=== PATIENT | female | born 1955 | race Caucasian/White ===

== ENCOUNTER 2019-01-02 13:06 | Inpatient (IN) | payer MEDICARE ==
[~2019-01-02] VITALS: Ht 160 cm; Wt 135.3 kg
--- NOTE | ~2019-01-02 | HEMODYNAMI ---
PATIENT:HEATHER PALOMARES MEDICAL RECORD: [id number] : 57 LOCATION:[facility].2128 ADMISSION DATE: 01/02/19 Generatedon:01/05/201913:43 Patient name: HEATHER PALOMARES Patient #: [id number] SSN: DO B: 1955 Date of study: 01/05/2019 Page: Of Hemodynamic Procedure Report Patient Data Patient Demographics Procedure consent was obtained First Name: HEATHER Gender: Female Last Name: JELANI : 1955 Patient #: [id number] Age: 63 year(s) Race: Unknown Additional ID: [id number] Contact details [address]: [address] [place] [address] State: [place] City: [place] Zip code: [address] Admission Admission Data Admission Date: 01/02/2019 Admission Time: 15:04 Room #: D.2128 Procedure Procedure Types Cath Procedure Diagnostic Procedure Cardioversion External Procedure Description Procedure Date Procedure Date: 01/05/2019 Procedure Start Time: 13:30 Procedure End Time: 13:42 Procedure Staff Name Function Yefri Castro MD Performing Physician Danitza Gaitan RT Shrinking Machine Operator Kellie Toussaint RT Monitor Sharon Damian RN Nurse John Fuller Jr [facility] Additional personnel Procedure Data Procedure Complications No complications Procedure Medications Medication Administration Route Dosage 0.9% NaCl I.V. 100 ml/hr Oxygen etCO2 Nasal cannula 2 l/min Refer to Anesthesia Notes for Sedation Medications Digoxin I.V. 0.25 mg Hemodynamics Rest Heart Rate: 87 (bpm) Snapshots Pre Cath Intra NCS Post Cath Vital Signs Time Heart Resp SPO2 etCO2 NIBP (mmHg) Rhythm Pain Sedation Rate (ipm) (%) (mmHg) Status Level (bpm) 13:21:11 83 14 97 35.2 Measuring A-Fib 0 (11) 10(A) , No pain 13:21:13 80 12 97 35.2 186/88(134) A-Fib 0 (11) 10(A) , No pain 13:26:08 81 16 97 34.4 167/92(133) A-Fib 0 (11) 10(A) , No pain 13:31:07 78 19 97 32.9 Measuring A-Fib 0 (11) 10(A) , No pain 13:31:09 79 19 97 32.9 180/76(132) A-Fib 0 (11) 10(A) , No pain 13:36:08 51 17 96 23.9 Measuring A-Fib 0 (11) 5(A) , No pain 13:38:56 61 18 97 23.9 129/70(95) NSR 0 (11) 5(A) , No pain 13:41:54 60 18 98 28.4 127/74(95) NSR 0 (11) 10(A) , No pain Medications Time Medication Route Dose Verified Delivered Reason Notes Effective ness by by 13:21:41 0.9% NaCl I.V. 100 Yefri Sharon used for ml/hr [place] Rickie procedure RN 13:21:48 Oxygen etCO2 2 Yefri Sharon used for Nasal l/min [facility] procedure cannula RN 13:21:53 Refer to Yefri Asif Anesthesia [facility] Notes for MD [place] Sedation Medications 13:42:22 Digoxin I.V. 0.25 Yefri Daya Per mg [facility] physician accounting representative Log Time Note 13:00:42 Danitza Gaitan RT(R) sent for patient. Start room use. 13:18:51 Time tracking: Regular hours (M-F 7:00 - 5:00) 13:18:55 Plan of Care:Hemodynamics will remain stable., Cardiac rhythm will remain stable., Comfort level will be maintained., Respiratory function will remain adequate., Patient/ family verbilizes understanding of procedure., Procedure tolerated without complication., Recovers from procedure without complications.. 13:19:13 Patient arrived from PCU to CCL 1. Patient remains on bed/stretcher for procedure. 13:19:15 Warm blankets applied, and josi hugger turned on for patient comfort. 13:19:15 Correct patient and procedure confirmed by team. 13:19:17 Signed procedure consent form obtained from patient. 13:19:18 ECG and BP/O2 sat monitors applied to patient. 13:19:23 Vital chart was started 13:19:28 Baseline sample Acquired. 13:19:33 Rhythm: atrial fibrillation 13:19:35 Full Disclosure recording started 13:19:55 H&P Date Dictated: 01/03/2019 Within 30 days and on chart., H&P Addendum completed by physician on day of procedure. (MUST COMPLETE FOR ALL OUTPATIENTS). 13:19:56 Pre-procedure instructions explained to patient. 13:19:56 Pre-op teaching completed and patient verbalized understanding. 13:19:59 Family in patients room. 13:20:00 Patient NPO since Midnight. 13:20:02 Is the patient allergic to Iodine/contrast media? No. 13:20:03 Is patient on blood thinner?Yes 13:20:06 ACC The patient was administered the following blood thiners within the last 24 hours: Coumadin 13:20:08 Patient diabetic? No. 13:20:11 Previous problem with sedation/anesthesia? No ? 13:20:12 Snore? Yes 13:20:14 Sleep apnea? No 13:20:15 Deviated septum? No 13:20:16 Opens mouth fully? Yes 13:20:17 Sticks out tongue? Yes 13:20:19 Airway obstruction? No ? 13:20:23 Dentures? Yes OUT 13:20:49 Patient pain scale 0/10 ?. 13:20:57 IV patent on arrival in right forearm with 0.9% NaCl at [facility]. 13:20:59 Lab results completed and on chart. 13:21:11 Quick Combo opened to sterile field. 13:21:20 Alarms reviewed by RSuma NSuma 13:21:24 John Fuller Jr SPLITTER TENDER present and monitoring patient for TIVA. 13:21:27 Quick combo pads placed on patients chest and back. 13:21:41 0.9% NaCl 100 ml/hr I.V. was administered by Sharon Damian RN; used for procedure; 13:21:48 Oxygen 2 l/min etCO2 Nasal cannula was administered by Sharon Damian RN; used for procedure; 13:21:53 Refer to Anesthesia Notes for Sedation Medications was administered by Yefri Castro MD; ; 13:30:35 Procedure started. 13:33:31 Defibrillator synced and charged to 200 Joules. 13:33:34 Shock delivered. 13:33:49 Patient cardioverted to sinus rhythm . 13:35:57 PT CONVERTED OUT OF SINUS RHYTHM 13:36:08 Defibrillator synced and charged to 200 Joules. 13:36:10 Shock delivered. 13:36:24 Patient cardioverted to sinus rhythm . 13:39:21 Procedure ended.(Physican Out) 13:41:49 Post-procedure physical assessment completed. ASA score P 3 - A patient with severe systemic disease as per Yefri Castro MD. 13:41:53 Post procedure rhythm: sinus rhythm 13:42:08 Procedure and supply charges have been captured, reviewed, submitted and are correct. 13:42:22 Digoxin 0.25 mg I.V. was administered by Sharon Damian RN; Per physician; 13:42:29 Procedure Complication : No complications 13:42:35 Vital chart was stopped 13:42:38 See physician's report for complete and final results. 13:42:44 Report given to [facility]. 13:42:48 Patient transfered to [facility] with Bed. 13:42:51 Procedure ended. 13:42:51 Full Disclosure recording stopped 13:42:55 End room use (Document Last) 13:42:55 End room use (Document Last) 13:42:55 End room use (Document Last) Device Usage Item Manufacture Quantity Catalog Hospital Part Current Minimal Lot# / Name Number Charge Number Stock Stock Miranda al# Code Cequint 1 [id number] Combo Signature Audit [place] [employer] Stage Time Signature Unsigned Intra-Procedure 01/05/2019 Kellie Toussaint 1:43:31 PM RT(R) Signatures Monitor : Kellie Toussaint Signature : RT Date : Time : [facility] [address] [place] [address]
[2019-01-02] MEDS ORDERED: CLARITIN 10 MG10 MG PO (13:19)
[2019-01-02] MEDS ORDERED: PLAQUENIL PO (13:22)
[2019-01-02] MEDS ORDERED: ACETAMINOPHEN500 M1 PO (13:22)
[2019-01-02] MEDS ORDERED: LOPRESSOR25 MG PO (13:22)
[2019-01-02] MEDS ORDERED: REQUIP3 MG PO (13:23)
[2019-01-02] MEDS ORDERED: COUMADIN6 MG PO (13:23)
[2019-01-02] MEDS ORDERED: LEXAPRO20 MG PO (13:23)
[2019-01-02] MEDS ORDERED: LIPITOR10 MG PO (13:23)
[2019-01-02] MEDS ORDERED: PROTONIX40 MG PO (13:23)
[2019-01-02] MEDS ORDERED: KLONOPIN1 MG PO (13:24)
--- NOTE | 2019-01-02 13:41 | NUR ---
RECEIVED NTG TABS X 3. PAIN DECREASED FROM 8/10 TO 5/10.
[2019-01-02 13:44] LABS: BASOPHILS 0.4 % (0-2); EOSINOPHILS 0.6 % (0-7); HEMATOCRIT 30.1 % (36.0-48.0); HEMOGLOBIN 9.6 g/dL (12-16); IMMATURE GRANULOCYTES 0.2 % (0-5); MCH 28.9 pg (26.0-34.0); MCHC 31.9 g/dL (31.0-37.0); MCV 90.7 fL (80.0-100.0); MEAN PLATELET VOLUME 10.2 fL (7.4-10.4); MONOCYTES 5.7 % (2-11); NEUTROPHILS 80.1 % (40-80); PLATELET COUNT 186 10x3/uL (130-400); RBC 3.32 10x6/uL (4.00-5.40); RDW 14.5 % (11.5-14.5); WBC 5.3 10x3/uL (4.8-10.8)
[2019-01-02 13:52] VITALS: BP 157/75
[2019-01-02 13:57] LABS: APTT 42.5 SECONDS (22.8-39.4); INR 2.85 (0.85-1.17); PROTIME 29.1 SECONDS (11.6-15.0)
[2019-01-02 13:58] LABS: ALBUMIN 3.7 g/dL (3.4-5.0); ALKALINE PHOSPHATASE 62 U/L (46-116); ALT (SGPT) 28 U/L (10-68); BILIRUBIN - TOTAL 0.86 mg/dL (0.2-1.3); CALC OSMOLALITY 277 mosm/kg (275-300); CALCIUM 9.4 mg/dL (8.5-10.1); CARBON DIOXIDE 29.2 mmol/L (21.0-32.0); CHLORIDE - SERUM 102 mmol/L (98-107); CREATININE - SERUM 0.8 mg/dL (0.6-1.3); GLUCOSE 114 mg/dL (74-106); POTASSIUM - SERUM 4.6 mmol/L (3.5-5.1); PROTEIN - SERUM 8.1 g/dL (6.4-8.2); SODIUM 139 mmol/L (136-145); UREA NITROGEN 10 mg/dL (7-18); eGFR NON AFRICAN AMERICAN 77 mL/min (90-120)
[2019-01-02 14:00] VITALS: BP 153/77
[2019-01-02 14:10] LABS: CKMB 0.7 U/L (0.0-3.6); CREATINE KINASE 108 UL (21-215); MAGNESIUM - SERUM 1.7 mg/dL (1.8-2.4); PRO BNP 3241 pg/mL (0-125); TROPONIN-I < 0.017 ng/mL (0.000-0.060)
--- NOTE | 2019-01-02 14:15 | NUR ---
NEW PATIENT ADMIT FROM ER VIA [facility]ED AND [facility]OS[facility] PERSONNEL. PATIENT IS AWAKE, ALERT AND ORIENTED X 4. PATIENT IS STABLE AND VSS. O2 PER NC AT 2L. TELEMETRY APPLIED. CONTROLLED AFIB 94BPM. PATIENT HISTORY AND ASSESMENT COMPLETED. MULTIPLE AREAS OF REDNESS AND SCAB SORES. PATIENT STATES SHE HAS LONG HX OF STAPH INFECTION. NOTIFIED DR HUTTON OF ADMISSION. DR HUTTON STATED THAT HE WAS OF NEW PATIENT AND NO NEW ORDERS RECEIVED.
--- NOTE | 2019-01-02 20:09 | NUR ---
EVENING ROUNDS COMPLETED. REPORT RECEIVED. PT SITTING UP IN BED WITH EYES OPEN, RR EVEN AND UNLABORED. BED IN LOW POSITION. NO S/S OF DISTRESS NOTED. INTRODUCED SELF TO PT. PT DENIES FURTHER NEEDS AT THIS TIME. CALL LIGHT IN REACH. WILL CTM.
[2019-01-02 21:28] LABS: CKMB 0.5 U/L (0.0-3.6); CREATINE KINASE 110 UL (21-215); TROPONIN-I < 0.017 ng/mL (0.000-0.060)
--- NOTE | 2019-01-02 21:37 | NUR ---
ORDERED ECG PERFORMED AND PLACED ON CHART. EVENING MEDICATIONS ADMINISTERED WITHOUT ISSUE. CALL LIGHT IN REACH. WILL CTM.
--- NOTE | 2019-01-02 22:26 | NUR ---
CALLED [facility] MOORE NURSE PRACTICIONER REGARDING PT ELEVATED BLOOD PRESSURE AND HEART RATE. [facility] ORDERED A RESTART OF PT PO LOPRESSOR 25 MG BID.
[2019-01-03] VITALS (7 sets, daily range): BP systolic 101–172; BP diastolic 41–78; BMI 52.7
[2019-01-03 02:56] LABS: CKMB 0.5 U/L (0.0-3.6); CREATINE KINASE 99 UL (21-215); TROPONIN-I < 0.017 ng/mL (0.000-0.060)
--- NOTE | 2019-01-03 05:27 | NUR ---
I have reviewed this patient and I concur with the Shift Assessment completed by the Licensed Practical Nurse today this shift.
--- NOTE | 2019-01-03 05:27 | NUR ---
ADMISSION ASSESSMENT COMPLETED. PT AWAKE/ALERT AND UP IN BEDSIDE CHAIR. AT BEDSIDE.
[2019-01-03 11:15] LABS: BASOPHILS 0.8 % (0-2); EOSINOPHILS 2.9 % (0-7); HEMATOCRIT 28.2 % (36.0-48.0); HEMOGLOBIN 8.9 g/dL (12-16); IMMATURE GRANULOCYTES 0.2 % (0-5); LYMPHOCYTES 22.1 % (15-50); MCH 28.3 pg (26.0-34.0); MCHC 31.6 g/dL (31.0-37.0); MCV 89.8 fL (80.0-100.0); MEAN PLATELET VOLUME 9.1 fL (7.4-10.4); MONOCYTES 14.9 % (2-11); NEUTROPHILS 59.1 % (40-80); PLATELET COUNT 189 10x3/uL (130-400); RBC 3.14 10x6/uL (4.00-5.40); RDW 14.6 % (11.5-14.5); WBC 6.3 10x3/uL (4.8-10.8)
[2019-01-03 11:40] LABS: ALBUMIN 3.4 g/dL (3.4-5.0); ALKALINE PHOSPHATASE 53 U/L (46-116); ALT (SGPT) 24 U/L (10-68); BILIRUBIN - TOTAL 1.01 mg/dL (0.2-1.3); CALC OSMOLALITY 279 mosm/kg (275-300); CALCIUM 8.5 mg/dL (8.5-10.1); CARBON DIOXIDE 29.6 mmol/L (21.0-32.0); CHLORIDE - SERUM 103 mmol/L (98-107); CREATININE - SERUM 0.8 mg/dL (0.6-1.3); GLUCOSE 97 mg/dL (74-106); PROTEIN - SERUM 7.2 g/dL (6.4-8.2); SODIUM 141 mmol/L (136-145); UREA NITROGEN 10 mg/dL (7-18); eGFR NON AFRICAN AMERICAN 77 mL/min (90-120)
[2019-01-03 11:41] LABS: POTASSIUM - SERUM 3.5 mmol/L (3.5-5.1)
[2019-01-03 16:14] LABS: ERYTHROCYTE SEDIMENTATION RATE 28 mm/hr (0-30)
--- NOTE | 2019-01-03 20:00 | NUR ---
EVENING ROUNDS COMPLETED. REPORT RECEIVED. PT SITTING UP IN BED WITH EYES OPEN, RR EVEN AND UNLABORED. PT APPEARS TO HAVE SPILLED DRINK ON GOWN, ASSISTED PT IN CHANGING INTO NEW GOWN AND CLEANING UP SELF. DENIES FURTHER NEEDS AT THIS TIME. 60 CONTROLLED AFIB ON MONITOR. BED IN LOW POSITION. CALL LIGHT IN REACH. WILL CTM.
--- NOTE | 2019-01-03 23:40 | NUR ---
LEFT AC PIV REMOVED, RESITED IN RIGHT HAND 22 G, DATED AND MARKED. WILL CTM.
[2019-01-04] VITALS: BP 99/55
[2019-01-04 05:29] LABS: BASOPHILS 0.8 % (0-2); EOSINOPHILS 6.5 % (0-7); HEMATOCRIT 30.8 % (36.0-48.0); HEMOGLOBIN 9.5 g/dL (12-16); LYMPHOCYTES 24.4 % (15-50); MCH 28.4 pg (26.0-34.0); MCHC 30.8 g/dL (31.0-37.0); MONOCYTES 12.8 % (2-11); NEUTROPHILS 55.5 % (40-80); PLATELET COUNT 200 10x3/uL (130-400); RBC 3.35 10x6/uL (4.00-5.40); RDW 14.5 % (11.5-14.5); WBC 5.1 10x3/uL (4.8-10.8)
[2019-01-04 05:34] LABS: MCV 91.9 fL (80.0-100.0)
[2019-01-04 05:35] LABS: INR 1.98 (0.85-1.17); PROTIME 21.8 SECONDS (11.6-15.0)
--- NOTE | 2019-01-04 05:36 | NUR ---
I have reviewed this patient and I concur with the Shift Assessment completed by the Licensed Practical Nurse today this shift.
[2019-01-04 05:55] LABS: ANION GAP 14.1 mmol/L (8-16); CALCIUM 8.2 mg/dL (8.5-10.1); CARBON DIOXIDE 28.8 mmol/L (21.0-32.0); POTASSIUM - SERUM 3.9 mmol/L (3.5-5.1)
[2019-01-04 06:26] LABS: CREATININE - SERUM 1.3 mg/dL (0.6-1.3)
[2019-01-04 08:52] VITALS: BP 106/68
[2019-01-04 09:49] VITALS: Ht 160 cm; Wt 135.3 kg
[2019-01-04 12:55] VITALS: BP 110/70
[2019-01-04 14:54] VITALS: BP 124/48
--- NOTE | 2019-01-04 19:30 | NUR ---
PT UP AMBULATING AROUND THE ROOM GAIT IOS STABLE PT IS ALERT AND OX4 ASKES FOR AND RECIEVES FLUIDS AT THIS TIME LCTA REDNESS NOTED AROUND LEFT FACE AND ARM BED IS LOW AND LOCKED I RERCONFIRMED PT HAD CALL LIGHT IN REACH
[2019-01-04 20:00] VITALS: BP 115/581
--- NOTE | 2019-01-04 21:19 | NUR ---
ALL MEDS GIVEN THIS PM RECIEVED NOTICE IN REPORT BP DOWN LAST TWO BP 124/48 AND 115/56 PT ALERT AND OX4
[2019-01-05] VITALS: BP 115/81
--- NOTE | 2019-01-05 01:46 | NUR ---
I have reviewed this patient and I concur with the Shift Assessment completed by the Licensed Practical Nurse today this shift.
[2019-01-05 04:00] VITALS: BP 117/73
[2019-01-05 06:14] LABS: CALC OSMOLALITY 284 mosm/kg (275-300); CALCIUM 8.3 mg/dL (8.5-10.1); CHLORIDE - SERUM 104 mmol/L (98-107); GLUCOSE 83 mg/dL (74-106); POTASSIUM - SERUM 3.7 mmol/L (3.5-5.1); SODIUM 142 mmol/L (136-145); UREA NITROGEN 20 mg/dL (7-18); eGFR NON AFRICAN AMERICAN 90 mL/min (90-120)
[2019-01-05 06:15] LABS: CREATININE - SERUM 0.7 mg/dL (0.6-1.3)
[2019-01-05 06:20] LABS: INR 1.65 (0.85-1.17); PROTIME 18.9 SECONDS (11.6-15.0)
[2019-01-05 06:25] LABS: BASOPHILS 0.7 % (0-2); EOSINOPHILS 7.8 % (0-7); HEMATOCRIT 29.9 % (36.0-48.0); HEMOGLOBIN 9.4 g/dL (12-16); LYMPHOCYTES 27.4 % (15-50); MCH 28.5 pg (26.0-34.0); MCHC 31.4 g/dL (31.0-37.0); MCV 90.6 fL (80.0-100.0); MEAN PLATELET VOLUME 10.4 fL (7.4-10.4); NEUTROPHILS 50.1 % (40-80); PLATELET COUNT 198 10x3/uL (130-400); RDW 14.1 % (11.5-14.5); WBC 4.5 10x3/uL (4.8-10.8)
--- NOTE | 2019-01-05 07:30 | NUR ---
ASSESSMENT COMPLETED, ALERT AND ORIENTED. TELEMERTY SHOWS CAF 85.RIGHT HAND SL UP AB JESÚS. NPO FOR CARDIOVERSION.NO NEEDS VOICED.
[2019-01-05 08:55] VITALS: BP 131/46
--- NOTE | 2019-01-05 09:00 | CN ---
PATIENT NAME:HEATHER PALOMARES MEDICAL RECORD: [id number] : 57 LOCATION:. D.2128 ADMIT DATE: 01/02/19 ACCOUNT: [id number] CONSULTING PHYSICIAN: MEAGHAN JUNG MD REFERRING PHYSICIAN: ANUPAM HUTTON MD DATE OF CONSULTATION: 01/03/2019 HISTORY OF PRESENT ILLNESS: A 63-year-old female with history of lupus with lupus anticoagulant. She has a history of DVT in the past secondary to hypercoagulability with lupus anticoagulant. Admitted with atrial fibrillation and volume overload symptomatology, by her significant other's report going over the past 4-6 weeks with progression up to point of pita orthopnea, PND, and lower extremity edema. We are asked to see her concerning her cardiovascular status. By her report, she is unaware of atrial fibrillation, just volume overload. She does carry history of anemia and describes a pica with chewing ice over the past 4-6 weeks in the same time period. PAST MEDICAL HISTORY: Includes; 1. History of DVT in the past. 2. Lupus with lupus anticoagulant positive. 3. Hypertension. 4. Hyperlipidemia. ALLERGIES: SULFA, IODINE, LATEX, AND LYRICA. MEDICATIONS: Typically, include Coumadin per scale, Lipitor 10 mg daily, metoprolol 25 daily, Lexapro 20 daily, Requip 3 mg at bedtime, Klonopin 1 mg at bedtime, and Plaquenil 200 b.i.d. SOCIAL HISTORY: Lives in [facility]. She is nonsmoker and nondrinker. Takes care of all her ADLs. No set exercise program. REVIEW OF SYSTEMS: The patient reports easy bruising but reports no swollen glands. The patient reports no fever, no night sweats, no significant weight gain, no significant weight loss. No significant exercise tolerance. The patient reports no dry eyes, no irritation, no vision change. Patient reports no difficulty hearing and no ear pain. Patient reports no frequent nose bleeds or nose and sinus problems. Patient reports on arm pain on exertion. No shortness of breath while lying down. No history of heart murmur. Patient reports no cough, no wheezing or coughing up blood. Patient reports no abdominal pain, no vomiting. Normal appetite. No diarrhea and not vomiting blood. No nausea and no constipation. Patient reports no incontinence. No difficulty urinating. No hematuria. No increased frequency. Patient reports no muscle aches. No weakness, no arthralgias, no back pain. No swelling of the extremities. Patient reports no abnormal mole, no jaundice, no rashes. Reports no loss of consciousness. No weakness and no numbness. No seizures, dizziness, or headaches. The patient reports no depression, no sleep disturbance, feeling safe in a relationship and no alcohol abuse. Patient reports on fatigue. Reports no runny nose or sinus pressure. No itching, no hives, and no frequent sneezing. PHYSICAL EXAMINATION: GENERAL: Well developed, well nourished, in no acute distress. VITAL SIGNS: Blood pressure 154/72. Pulse 87 and regular. HEENT: Normocephalic and atraumatic. CONSULT REPORT [id number] HEATHER PALOMARES NECK: No JVD or bruits. HEART: Irregular. Rate is controlled. II/ systolic ejection murmur. LUNGS: Fair air excursion. ABDOMEN: Soft and nontender. EXTREMITIES: Pulses are 1+ with 1+ edema. DIAGNOSTIC DATA: ECG shows atrial fibrillation and nonspecific ST-T changes. IMPRESSION: Volume overload. Some of this may be related to atrial fibrillation with loss of atrial kick. We will check echocardiographic study to assess LV function. Given multiple risk factors and true myopathic symptoms, may require angiography at some point. TRANSINT:[id number] Voice Confirmation ID: [id number] DOCUMENT ID: [id number] MEAGHAN JUNG MD at 0900 CC: [id number] DICTATION DATE: 01/03/19 0953 PRIVATE TUTORS AND TEACHERS: 01/03/19 1308 ADM IN [place] [address] [place] [address]
--- NOTE | 2019-01-05 09:00 | EC ---
PATIENT:HEATHER PALOMARES DATE OF SERVICE: 01/02/19 SEX: F MEDICAL RECORD: [id number] DATE OF : 57 LOCATION:D.M2 D.212 AGE OF PATIENT: 63 ADMISSION DATE: 01/02/19 REFERRING PHYSICIAN: INTERPRETING PHYSICIAN: MEAGHAN JUNG MD ECHOCARDIOGRAM REPORT ECHO CHARGES 4 ECHO COMPLETE Date: 01/03/19 CLINICAL DIAGNOSIS: CHF, AFIB ECHOCARDIOGRAPHIC MEASUREMENTS (adult normal given) AC root (d.<3.7cm) 2.3 cm LV Septum d (<1.2 cm> 1.2 cm Valve Excursion 1.3 cm LV Septum (systole) 1.5 cm Left Atria (s.<4.0cm> 4.5 cm LVPW d(<1.2cm) 1.2 cm RV (d.<2.3cm) 3.5 cm LVPW (sytole) 1.5 cm LV diastole(<5.6CM) 4.8 cm MV E-F(>70mm/sec) cm LV systole 3.3 cm LVOT Diameter 2.0 cm MV exc.(>10mm) cm Est.ejection fraction (50-75%) % DOPPLER: LVIT cm/sec A 33 cm/sec E 137 cm/sec LA cm/sec RVSP 19.7 mmHg LVOT 118 cm/sec AOP1/2T m/s Asc. Ao 139 cm/sec RVOT 66 cm/sec RA cm/sec PA 114 cm/sec AV Gradient Peak 7.7 mmHg AV Mean 5.5 mmHg AV Area 2.8 cm MV Gradient Peak 6.1 mmHg MV Mean 2.0 mmHg MV Area cm COMMENTS: Marketing Co Op: Jayleen ELLISON Labor Commissioner: 3 Dr. Fernandes TAPE# PACS Pericardial Effusion N DATE OF SERVICE: Adequate 2D, color flow, spectral Doppler, and M-Mode. Mild LVH. LV internal dimensions are normal. Wall motion is normal. EF is greater than or equal to 55%. Aortic valve is tricuspid. No evidence of stenosis by Doppler interrogation. Left atrium dilated at 4.3 cm. Mitral valve shows no prolapse. Trace MR. Right-sided chambers grossly normal. Mild TR. TRANSINT:[id number] Voice Confirmation ID: [id number] DOCUMENT ID: [id number] ECHOCARDIOGRAM REPORT [id number] HEATHER PALOMARES MEAGHAN JUNG MD at 0900 CC: [id number] DICTATION DATE: 01/04/19845 SALESPERSON NEW CARS: 01/04/19 0947 ADM IN [place] [id number] [place] [id number]
[2019-01-05 12:35] VITALS: BP 154/74
[2019-01-05 15:11] VITALS: BP 133/55
--- NOTE | 2019-01-05 15:58 | MORECARE ---
CASE MANAGEMENT DISCHARGE SUMMARY PATIENT: HEATHER PALOMARES UNIT: [id number] ADM DATE: 01/02/19 AGE: 63 : 57 SEX: F ROOM/BED: D.5481 AUTHOR: JOSSY HERNANDES PHYSICIAN: REFERRING PHYSICIAN: ANUPAM HUTTON MD DATE OF SERVICE: 01/05/19 Discharge Plan Patient Name: HEATHER PALOMARES Facility: [facility]:[place] : 1955 Planned Disposition: Home Anticipated Discharge Date: Discharge Date: Expected LOS: Initial Reviewer: [email or web address] Initial Review Date: 01/05/2019 Generated: 01/05/19 4:58 pm Patient Name: HEATHER PALOMARES Page 12494 at 1558 All edits/amendments must be made on the electronic document DICTATION DATE: 01/05/19 155 SLUICE TENDER: RADHA 01/05/19 1557 RPT#: [id number] DC DATE: STATUS: ADM IN [facility] [address] [place] [address] END OF REPORT
--- NOTE | 2019-01-05 16:13 | MORECARE ---
CASE MANAGEMENT DISCHARGE SUMMARY PATIENT: HEATHER PALOMARES UNIT: [id number] ADM DATE: 01/02/19 AGE: 63 : 57 SEX: F ROOM/BED: D.6666 AUTHOR: CECILIO,DOC PHYSICIAN: REFERRING PHYSICIAN: ANUPAM HUTTON MD DATE OF SERVICE: 01/05/19 Discharge Plan Patient Name: HEATHER PALOMARES Facility: [facility]:[place] : 1955 Planned Disposition: Home Anticipated Discharge Date: Discharge Date: Expected LOS: Initial Reviewer: [email or web address] Initial Review Date: 01/05/2019 Generated: 01/05/19 5:13 pm Comments DCP- Discharge Planning Updated by [email or web address]: Jorge Bennett on 01/05/19 3:[address] Patient Name: HEATHER PALOMARES Admission Status: ER Accout number: [id number] Admission Date: 01-02-2019 : 1955 Admission Diagnosis: Attending: ANUPAM HUTTON Current LOS: 3 Anticipated DC Date: Planned Disposition: Home Primary Insurance: MEDICARE A & B Discharge Planning Comments: CM MET WITH PT AND SPOUSE IN ROOM TO DISCUSS DISCHARGE PLANNING AND NEEDS. HEATHER PALOMARES provided verbal consent to discuss current and ongoing needs with/in the presence of: SPOUSE, SHANNAN. PT REPORTS LIVING AT HOME INDEPENDENTLY WITH HER SPOUSE. PT HAS A STANDARD WALKER THAT SHE OBTAINED PRIVATELY. PT'S PREFERRED MEDICAL EQUIPMENT PROVIDER IS [email or web address]. PT HAS NO OUTSIDE SERVICES ASSISTING IN THE HOME. CM DISCUSSED AVAILABILITY OF HOME HEALTH, REHAB SERVICES AND MEDICAL EQUIPMENT. PT DENIES REPORTS NEEDING A WALKER WITH SEAT AND BRAKES. CM EXPLAINED THAT THERAPY WILL BE ORDERED TO EVALUATE AND IF A ROLLING WALKER IS RECOMMENDED, A PHYSICIAN ORDER WOULD BE REQUIRED FOR CM TO OBTAIN FOR PT. PT AND SPOUSE REPORT UNDERSTANDING. PT REPORTS HER SPOUSE WILL PICK HER UP FOR DISCHARGE HOME. IMPORTANT MESSAGE FROM MEDICARE PROVIDED AND EXPLAINED. CM NOTIFIED BEDSIDE NURSE TO OBTAIN ORDER FOR PHYSICAL THERAPY EVALUATION. PT SIGNED CHOICE FOR [facility], [place] [address], TO OBTAIN WALKER IF ORDERED. PT WOULD LIKE A ROLLING WALKER WITH SEAT AND BRAKES FOR DISCHARGE HOME. CM WAITING THERAPY RECOMMENDATIONS AND ORDER FOR WALKER. PT PLANS TO DISCHARGE HOME WITH SPOUSE, DENIES NEEDS OF REHAB OR HOME HEALTH. CM TO FOLLOW AND ASSIST IF NEEDED. Right Of Way Man: Jorge Bennett DCPIA - Discharge Planning Initial Assessment Updated by [email or web address]: Jorge Bennett on 01/05/19 3:58 pm * Is the patient Alert and Oriented? Yes * How many steps to enter\exit or inside your home? * PCP DR. CARMONA * Pharmacy [facility] [address] * Preadmission Environment Home with Family * ADLs Independent * Equipment Walker * Other Equipment [facility] - PREFERRED MEDICAL EQUIPMENT PROVIDER * List name and contact numbers for known caregivers / representatives who currently or will assist patient after discharge: SHANNAN PALOMARES, SPOUSE, * Verbal permission to speak to the caregivers and representatives has been obtained from the patient. Yes * Community resources currently utilized None * Please name any agencies selected above. NONE * Additional services required to return to the preadmission environment? No * Can the patient safely return to the preadmission environment? Yes * Has this patient been hospitalized within the prior 30 days at any hospital? No Last DP export: 01/05/19 2:58 pm Patient Name: HEATHER PALOMARES Page 10369 at 1613 All edits/amendments must be made on the electronic document DICTATION DATE: 01/05/191612 SALES AND MARKETING COORDINATOR: RADHA 01/05/191612 RPT#: [id number] DC DATE: STATUS: ADM IN [facility] [address] [place] [address] END OF REPORT
--- NOTE | 2019-01-05 19:15 | NUR ---
AWAKE AND ALERT DENIES CP MONITOR SHIOWS SR,,,SKIN WARM AND DRY LCTA ABIT DEMINISHED IN LOWER BASES IV SL AND PATENT BED IA LOCKED AND CALL LIGHT IS IN REACH
[2019-01-05 20:00] VITALS: BP 144/81
[2019-01-06] VITALS: BP 104/50
[2019-01-06 05:59] LABS: BASOPHILS 0.7 % (0-2); EOSINOPHILS 4.5 % (0-7); HEMATOCRIT 29.8 % (36.0-48.0); HEMOGLOBIN 9.3 g/dL (12-16); LYMPHOCYTES 30.4 % (15-50); MCH 28.7 pg (26.0-34.0); MCHC 31.2 g/dL (31.0-37.0); MEAN PLATELET VOLUME 10.1 fL (7.4-10.4); MONOCYTES 15.6 % (2-11); NEUTROPHILS 48.8 % (40-80); PLATELET COUNT 184 10x3/uL (130-400); RBC 3.24 10x6/uL (4.00-5.40); RDW 14.4 % (11.5-14.5); WBC 4.2 10x3/uL (4.8-10.8)
[2019-01-06 06:20] LABS: CALC OSMOLALITY 279 mosm/kg (275-300); CALCIUM 7.8 mg/dL (8.5-10.1); CARBON DIOXIDE 31.2 mmol/L (21.0-32.0); CHLORIDE - SERUM 103 mmol/L (98-107); CREATININE - SERUM 0.8 mg/dL (0.6-1.3); GLUCOSE 77 mg/dL (74-106); POTASSIUM - SERUM 3.2 mmol/L (3.5-5.1); SODIUM 140 mmol/L (136-145); UREA NITROGEN 17 mg/dL (7-18); eGFR NON AFRICAN AMERICAN 77 mL/min (90-120)
[2019-01-06 06:41] LABS: INR 1.49 (0.85-1.17); PROTIME 17.5 SECONDS (11.6-15.0)
[2019-01-06 06:49] VITALS: BP 112/43
--- NOTE | 2019-01-06 07:40 | NUR ---
ALERT AND ORIENTED. TELEMERTY SHOWS SR WITH A 1ST DEGREE AVB. RIGHT HAND SL. PT HAS A SORE ON HER FACE AND ARMS DUE TO STAPH. UP AB JESÚS. SR UP WITH CALL LIGHT IN REACH
[2019-01-06 09:15] VITALS: BP 104/71
[2019-01-06 12:16] VITALS: BP 147/64
--- NOTE | 2019-01-06 15:17 | MORECARE ---
CASE MANAGEMENT DISCHARGE SUMMARY PATIENT: HEATHER PALOMARES UNIT: [id number] ADM DATE: 01/02/19 AGE: 63 : 57 SEX: F ROOM/BED: D.0032 AUTHOR: JOSSY HERNANDES PHYSICIAN: REFERRING PHYSICIAN: ANUPAM HUTTON MD DATE OF SERVICE: 01/06/19 Discharge Plan Patient Name: HEATHER PALOMARES Facility: [facility]:[place] : 1955 Planned Disposition: Home Anticipated Discharge Date: 01/06/19 Discharge Date: Expected LOS: 4 Initial Reviewer: [id number] Initial Review Date: 01/05/2019 Generated: 01/06/19 4:17 pm Comments DCP- Discharge Planning Updated by [email or web address]: Jorge Bennett on 01/06/19 2:[address] Patient Name: HEATHER PALOMARES Encounter No: [id number] : 1955 Primary Insurance: MEDICARE A & B Anticipated DC Date: Planned Disposition: Home DCP follow-up note: CM REVIEWED PHYSICAL THERAPY EVALUATION AND NOTE, PT HAS NO SKILLED THERAPY NEEDS, BALANCE WAS NOTED GOOD AND NO RECOMMENDATIONS FOR MEDICAL EQUIPMENT WERE NOTED. CM MET WITH PT IN ROOM, PT REPORTS SHE WILL FOLLOW UP WITH HER PRIMARY CARE DOCTOR, DR. CARMONA, REGARDING WALKER WITH SEAT FOR HOME USE. PT DENIES DISCHARGE NEEDS. SPOUSE TO TRANSPORT HOME AT DISCHARGE. JANINE Willett DCP- Discharge Planning Updated by [email or web address]: Jorge Bennett on 01/05/19 3:[address] Patient Name: HEATHER PALOMARES Admission Status: ER Accout number: [id number] Admission Date: 01-02-2019 : 1955 Admission Diagnosis: Attending: ANUPAM HUTTON Current LOS: 3 Anticipated DC Date: Planned Disposition: Home Primary Insurance: MEDICARE A & B Discharge Planning Comments: CM MET WITH PT AND SPOUSE IN ROOM TO DISCUSS DISCHARGE PLANNING AND NEEDS. HEATHER PALOMARES provided verbal consent to discuss current and ongoing needs with/in the presence of: SPOUSE, SHANNAN. PT REPORTS LIVING AT HOME INDEPENDENTLY WITH HER SPOUSE. PT HAS A STANDARD WALKER THAT SHE OBTAINED PRIVATELY. PT'S PREFERRED MEDICAL EQUIPMENT PROVIDER IS [facility]. PT HAS NO OUTSIDE SERVICES ASSISTING IN THE HOME. CM DISCUSSED AVAILABILITY OF HOME HEALTH, REHAB SERVICES AND MEDICAL EQUIPMENT. PT DENIES REPORTS NEEDING A WALKER WITH SEAT AND BRAKES. CM EXPLAINED THAT THERAPY WILL BE ORDERED TO EVALUATE AND IF A ROLLING WALKER IS RECOMMENDED, A PHYSICIAN ORDER WOULD BE REQUIRED FOR CM TO OBTAIN FOR PT. PT AND SPOUSE REPORT UNDERSTANDING. PT REPORTS HER SPOUSE WILL PICK HER UP FOR DISCHARGE HOME. IMPORTANT MESSAGE FROM MEDICARE PROVIDED AND EXPLAINED. CM NOTIFIED BEDSIDE NURSE TO OBTAIN ORDER FOR PHYSICAL THERAPY EVALUATION. PT SIGNED CHOICE FOR [facility], [facility], TO OBTAIN WALKER IF ORDERED. PT WOULD LIKE A ROLLING WALKER WITH SEAT AND BRAKES FOR DISCHARGE HOME. CM WAITING THERAPY RECOMMENDATIONS AND ORDER FOR WALKER. PT PLANS TO DISCHARGE HOME WITH SPOUSE, DENIES NEEDS OF REHAB OR HOME HEALTH. CM TO FOLLOW AND ASSIST IF NEEDED. Probe Operator: Jorge Bennett DCPIA - Discharge Planning Initial Assessment Updated by [email or web address]: Jorge Bennett on 01/05/19 3:58 pm * Is the patient Alert and Oriented? Yes * How many steps to enter\exit or inside your home? * PCP DR. CARMONA * Pharmacy [facility] [address] * Preadmission Environment Home with Family * ADLs Independent * Equipment Walker * Other Equipment [facility] [place] - PREFERRED MEDICAL EQUIPMENT PROVIDER * List name and contact numbers for known caregivers / representatives who currently or will assist patient after discharge: SHANNAN PALOMARES, SPOUSE, * Verbal permission to speak to the caregivers and representatives has been obtained from the patient. Yes * Community resources currently utilized None * Please name any agencies selected above. NONE * Additional services required to return to the preadmission environment? No * Can the patient safely return to the preadmission environment? Yes * Has this patient been hospitalized within the prior 30 days at any hospital? No Coverage Notice Reviewer: [id number] Nagi Bennett Notice Issued Date-Time: 01/05/2019 15:35 Notice Type: IM Discharge Notice Notice Delivered To: Patient Relationship to Patient: Director Payer Name: Delivery Method: HAND - Hand Delivered Sheila Days: Prior Verbal Notification: Recipient Understood Notice: Yes Recipient Signature: Yes Med Rec Note Co-signed by Attending: Coverage Notice Comment: Reviewer: [id number] Bennett Notice Issued Date-Time: 01/05/2019 15:35 Notice Type: Patient Choice Letter Notice Delivered To: Patient Relationship to Patient: Director Payer Name: Delivery Method: HAND - Hand Delivered Sheila Days: Prior Verbal Notification: Recipient Understood Notice: Yes Recipient Signature: Yes Med Rec Note Co-signed by Attending: Coverage Notice Comment: darian ching for medical equipment Last DP export: 01/05/19 3:13 pm Patient Name: HEATHER PALOMARES Page [id number] at 1517 All edits/amendments must be made on the electronic document DICTATION DATE: 01/06/191516 INVESTIGATION DIVISION SERGEANT: RADHA 01/06/191516 RPT#: [id number] DC DATE: STATUS: ADM IN [facility] [address] [place] [address] END OF REPORT
--- NOTE | 2019-01-06 16:13 | NUR ---
PT SITTING UP IN BED AWAITING D/C. TELEMETRY SHOWING SINUS.
[2019-01-06] MEDS ORDERED: BETAPACE 120 M120 MG PO (16:21)
--- NOTE | 2019-01-06 17:35 | NUR ---
PT DISCHARGED. INSTRUCTIONS GIVEN TO PT AND . TOIVATE CAR PER WHEELCHAIR
[2019-01-06 17:37] VITALS: BP 131/65
--- NOTE | 2019-01-07 08:16 | MORECARE ---
CASE MANAGEMENT DISCHARGE SUMMARY PATIENT: HEATHER PALOMARES UNIT: [id number] ADM DATE: 01/02/19 AGE: 63 : 57 SEX: F ROOM/BED: D.9208 AUTHOR: JOSSY HERNANDES PHYSICIAN: REFERRING PHYSICIAN: ANUPAM HUTTON MD DATE OF SERVICE: 01/07/19 Discharge Plan Patient Name: HEATHER PALOMARES Facility: [facility]:[place] : 1955 Planned Disposition: Home Anticipated Discharge Date: 01/06/19 Discharge Date: 01/06/2019 Expected LOS: 4 Initial Reviewer: [email or web address] Initial Review Date: 01/05/2019 Generated: 01/07/19 9:16 am Comments DCP- Discharge Planning Updated by [email or web address]: Jorge Bennett on 01/06/19 2:[address] Patient Name: HEATHER PALOMARES Encounter No: [id number] : 1955 Primary Insurance: MEDICARE A & B Anticipated DC Date: Planned Disposition: Home DCP follow-up note: CM REVIEWED PHYSICAL THERAPY EVALUATION AND NOTE, PT HAS NO SKILLED THERAPY NEEDS, BALANCE WAS NOTED GOOD AND NO RECOMMENDATIONS FOR MEDICAL EQUIPMENT WERE NOTED. CM MET WITH PT IN ROOM, PT REPORTS SHE WILL FOLLOW UP WITH HER PRIMARY CARE DOCTOR, DR. CARMONA, REGARDING WALKER WITH SEAT FOR HOME USE. PT DENIES DISCHARGE NEEDS. SPOUSE TO TRANSPORT HOME AT DISCHARGE. JANINE Willett DCP- Discharge Planning Updated by [id number]: Jorge Bennett on 01/05/19 3:[address] Patient Name: HEATHER PALOMARES Admission Status: ER Accout number: [id number] Admission Date: 01-02-2019 : 1955 Admission Diagnosis: Attending: ANUPAM HUTTON Current LOS: 3 Anticipated DC Date: Planned Disposition: Home Primary Insurance: MEDICARE A & B Discharge Planning Comments: CM MET WITH PT AND SPOUSE IN ROOM TO DISCUSS DISCHARGE PLANNING AND NEEDS. HEATHER PALOMARES provided verbal consent to discuss current and ongoing needs with/in the presence of: SPOUSE, SHANNAN. PT REPORTS LIVING AT HOME INDEPENDENTLY WITH HER SPOUSE. PT HAS A STANDARD WALKER THAT SHE OBTAINED PRIVATELY. PT'S PREFERRED MEDICAL EQUIPMENT PROVIDER IS [facility]. PT HAS NO OUTSIDE SERVICES ASSISTING IN THE HOME. CM DISCUSSED AVAILABILITY OF HOME HEALTH, REHAB SERVICES AND MEDICAL EQUIPMENT. PT DENIES REPORTS NEEDING A WALKER WITH SEAT AND BRAKES. CM EXPLAINED THAT THERAPY WILL BE ORDERED TO EVALUATE AND IF A ROLLING WALKER IS RECOMMENDED, A PHYSICIAN ORDER WOULD BE REQUIRED FOR CM TO OBTAIN FOR PT. PT AND SPOUSE REPORT UNDERSTANDING. PT REPORTS HER SPOUSE WILL PICK HER UP FOR DISCHARGE HOME. IMPORTANT MESSAGE FROM MEDICARE PROVIDED AND EXPLAINED. CM NOTIFIED BEDSIDE NURSE TO OBTAIN ORDER FOR PHYSICAL THERAPY EVALUATION. PT SIGNED CHOICE FOR [facility], [facility], TO OBTAIN WALKER IF ORDERED. PT WOULD LIKE A ROLLING WALKER WITH SEAT AND BRAKES FOR DISCHARGE HOME. CM WAITING THERAPY RECOMMENDATIONS AND ORDER FOR WALKER. PT PLANS TO DISCHARGE HOME WITH SPOUSE, DENIES NEEDS OF REHAB OR HOME HEALTH. CM TO FOLLOW AND ASSIST IF NEEDED. Seasonal Driver: Jorge Bennett DCPIA - Discharge Planning Initial Assessment Updated by [email or web address]: Jorge Bennett on 01/05/19 3:58 pm * Is the patient Alert and Oriented? Yes * How many steps to enter\exit or inside your home? * PCP DR. CARMONA * Pharmacy [facility] [address] * Preadmission Environment Home with Family * ADLs Independent * Equipment Walker * Other Equipment [facility] - PREFERRED MEDICAL EQUIPMENT PROVIDER * List name and contact numbers for known caregivers / representatives who currently or will assist patient after discharge: SHANNAN PALOMARES, SPOUSE, * Verbal permission to speak to the caregivers and representatives has been obtained from the patient. Yes * Community resources currently utilized None * Please name any agencies selected above. NONE * Additional services required to return to the preadmission environment? No * Can the patient safely return to the preadmission environment? Yes * Has this patient been hospitalized within the prior 30 days at any hospital? No Coverage Notice Reviewer: [id number] Nagi Bennett Notice Issued Date-Time: 01/05/2019 15:35 Notice Type: IM Discharge Notice Notice Delivered To: Patient Relationship to Patient: Care Specialist Name: Delivery Method: HAND - Hand Delivered Sheila Days: Prior Verbal Notification: Recipient Understood Notice: Yes Recipient Signature: Yes Med Rec Note Co-signed by Attending: Coverage Notice Comment: Reviewer: [email or web address] Nagi Bennett Notice Issued Date-Time: 01/05/2019 15:35 Notice Type: Patient Choice Letter Notice Delivered To: Patient Relationship to Patient: Care Specialist Name: Delivery Method: HAND - Hand Delivered Sheila Days: Prior Verbal Notification: Recipient Understood Notice: Yes Recipient Signature: Yes Med Rec Note Co-signed by Attending: Coverage Notice Comment: darian ching for medical equipment Last DP export: 01/06/19 2:17 p Patient Name: HEATHER PALOMARES Page [phone] at 0816 All edits/amendments must be made on the electronic document DICTATION DATE: 01/07/19815 CHEMICAL MAKER: RADHA 01/07/19815 RPT#: [id number] DC DATE:01/06/19 STATUS: DIS IN [facility] [address] [place] [address] END OF REPORT
--- NOTE | 2019-01-11 08:26 | OP ---
PATIENT NAME: HEATHER PALOMARES MEDICAL RECORD: [id number] :[birth year] LOCATION:D.M2 D.2128 ADMISSION DATE:01/02/19 SURGEON: MEAGHAN JUNG MD DATE OF OPERATION: 01/05/2019 PROCEDURE: Cardioversion. DESCRIPTION OF PROCEDURE: After general sedation via TIVA via anesthesia, a synchronized shock at 200 joules was successful in restoring atrial fibrillation to normal sinus rhythm. IMPRESSION: Successful cardioversion on Heather Palomares. COMPLICATIONS: None. DISPOSITION: To the floor, stable. TRANSINT:[id number] Voice Confirmation ID: [id number] DOCUMENT ID: [id number] MEAGHAN JUNG MD at 0826 CC: [id number] DICTATION DATE: 01/05/19 1402 DOCUMENTATION ENGINEER: 01/05/19 1437 DIS IN 01/06/19 [id number] [place] [address]
== END 2019-01-06 17:38 | disposition home or self-care (01) | DRG 308 ==
LOC: D.ER 13:06 → D.M2 15:04
PROVIDERS: Emergency Medicine; ADMIT Internal Medicine Nephrology; ATTEND Internal Medicine Nephrology
DX: I48.91 Unspecified atrial fibrillation (principal); I50.33 Acute on chronic diastolic (congestive) heart failure; D68.61 Antiphospholipid syndrome; D80.2 Selective deficiency of immunoglobulin A [IgA]; Z79.01 Long term (current) use of anticoagulants; D64.9 Anemia, unspecified; E83.42 Hypomagnesemia; K21.9 Gastro-esophageal reflux disease without esophagitis; K52.9 Noninfective gastroenteritis and colitis, unspecified; M32.9 Systemic lupus erythematosus, unspecified

== ENCOUNTER → 2019-07-13 11:11 | Outpatient (CLI) | payer MEDICARE ==
[2019-01-04 09:49] VITALS: BMI 52.6
[~2019-07-13 11:11] MED LIST: ACETAMINOPHEN500 M1 PO; BETAPACE 120 M120 MG PO; CLARITIN 10 MG10 MG PO; COUMADIN6 MG PO; KLONOPIN1 MG PO; LEXAPRO20 MG PO; LIPITOR10 MG PO; LOPRESSOR25 MG PO; PLAQUENIL PO; PROTONIX40 MG PO; REQUIP3 MG PO
[2019-07-13 11:37] LABS: INR 1.94 (0.85-1.17); PROTIME 21.9 SECONDS (11.6-15.0)
== END | disposition home or self-care (01) ==
LOC: D.LABREF 11:11
PROVIDERS: ATTEND Family Medicine
DX: I11.0 Hypertensive heart disease with heart failure (principal); I50.9 Heart failure, unspecified; Z79.01 Long term (current) use of anticoagulants